=== PATIENT | female | born 1955 | race Caucasian/White ===

== ENCOUNTER → 2021-03-01 15:35 | Outpatient (BNVA) | payer SELFPAY | PROVIDERS: PCP Internal Medicine; Visit Provider Nurse Practitioner Family | DX: Z20.822 Contact with and (suspected) exposure to COVID-19 (principal); I10 Essential (primary) hypertension; B34.9 Viral infection, unspecified; F17.200 Nicotine dependence, unspecified, uncomplicated | CPT/HCPCS: 87635 ==

== ENCOUNTER 2023-09-15 15:31 | Emergency (ER) | payer MEDICARE, MEDICAID, SELFPAY ==
[2023-09-15 15:39] VITALS: BP 184/109; PULSE 59; RESP 17; TEMP 36.7; O2SAT 95; BMI 39.1
--- NOTE | 2023-09-15 16:03 | XRR_ITS ---
PROCEDURE INFORMATION: Exam: XR Right Knee Exam date and time: 09/15/2023 4:10 PM Age: 68 years old Clinical indication: Right; Patient HX: Non traumatic RT knee pain TECHNIQUE: Imaging protocol: Radiologic exam of the right knee. Views: 3 views. COMPARISON: No relevant prior studies available. FINDINGS: Bones/joints: Negative for fracture. Moderate DJD centered in the lateral compartment. Soft tissues: Normal. XR/XR knee RT 3V* [id number] IMPRESSION: No acute findings. Moderate DJD centered in the lateral compartment.
--- NOTE | 2023-09-15 16:04 | W.ED.EXTPRO ---
HPI - Extremity Problem General: Chief complaint: Extremity Injury, Lower Stated complaint: right knee pain Time Seen by Provider: 09/15/23 15:50 Source: patient and family Mode of arrival: ambulatory Limitations: no limitations History of Present Illness: This patient made her way to the emergency department today because she has had knee pain for at least 2 months. It is involving the right knee and there was no trauma involved. She states the pain is intermittent and seems to worsen with activity. She states that she has noted more pain recently. She says she had a lot of soreness in the back of her right knee. She again denies any recent trauma. No prior history of knee injury or knee surgeries. No prior history of thromboembolic events. She states that occasionally it feels weak and feels like it is going to give way. She is unsure if it locks at times. She has no pain in her left knee. She cannot comment on stair walking exacerbating symptoms that she has no stairs. Pain Consistency: intermittent Exacerbating factors: weight bearing and walking Associated symptoms: Deny chest pain, fever(s) or rash Review of Systems Const: Denies: fever(s) or chills ENMT: Denies: odynophagia, nasal congestion or nasal obstruction Card: Denies: chest pain, palpitations or irregular heart rhythm GI: Denies: abdominal pain, nausea or vomiting Musc: Reports: extremity pain; Denies: neck pain, back pain or extremity swelling Skin/Breast: Denies: rash or pruritus Neuro: Denies: headache(s), numbness in extremities or weakness in extremities Physical Exam Narrative: EXAM NARRATIVE: Patient is comfortable appears to be in no acute distress. She is goal-directed in her speech and answers all questions in a fluent voice Const: COMMON NORMALS: no acute distress, patient oriented x3 and alert NUTRITIONAL APPEARANCE: overweight HENMT: COMMON NORMALS: normocephalic HEAD & SCALP: normocephalic Eye: COMMON NORMALS: Equal, round and reactive pupils present PUPIL: Yes Equal, round and reactive pupils present Neck/C-Spine: COMMON NORMALS: full ROM Resp: COMMON NORMALS: normal respiratory effort and No use of accessory muscles EFFORT & INSPECTION: Yes able to speak in complete sentences Cardio: COMMON NORMALS: Peripheral pulses 2+ throughout PERIPHERAL PULSES: Peripheral pulses 2+ throughout : COMMON NORMALS: Yes no CVA tenderness BLADDER/KIDNEY EXAM: Yes no CVA tenderness Back/Pelvis: COMMON NORMALS: no CVA tenderness, thoracic and lumbar spine normal to inspection and no thoracic nor lumbar tenderness Extremity: COMMON NORMALS: normal to inspection and capillary refill normal NARRATIVE EXTREMITY EXAM: Examination with attention to the right lower extremity reveals normal appearing right lower extremity. There is no erythema joint effusions etc. She has normal range of motion at the hip ankle and foot. She is able to range her knee normally as well although it reproduces some discomfort for her to do so. There is no joint effusion or erythema of the skin overlying the right knee. There is some mild joint line tenderness medially. There is patella is in normal position and not ballotable. There is no laxity to varus or valgus stress. She has no anterior posterior drawer negative Gloria's. She does have some tenderness in the popliteal fossa. She has no proximal tenderness along the anterior medial thigh or in the inguinal region. There is no calf tenderness. Negative Homans. Neuro: COMMON NORMALS: patient oriented x3, moves all extremities, no focal motor deficits and no sensory deficits noted SENSORIUM/ORIENTATION: Yes alert Psych: COMMON NORMALS: mental status grossly normal Skin: COMMON NORMALS: no rashes or lesions noted and turgor normal GENERAL SKIN EXAM: no rashes or lesions noted and turgor normal Course Vital Signs: Vital signs: Vital Signs Temperature 98.1 F 09/15/23 15:39 Pulse Rate 57 L 09/15/23 16:26 Respiratory Rate 17 09/15/23 15:39 Blood Pressure 140/77 09/15/23 16:26 Pulse Oximetry 94 09/15/23 16:26 Oxygen Delivery Me thod Room Air 09/15/23 16:26 MDM - Extremity (Nontraumatic) Medical Decision Making Patient presented as noted in the HPI with nontraumatic right knee pain. He worse with activity and some achiness in the back part of her knee. No prior history of knee injuries. Clinical exam revealed no evidence that was suggest a septic joint or hot joint. She had no demonstrable instability. It was medial joint line tenderness as well as some posterior popliteal tenderness. She was neurovascular intact in that extremity. Differential included osteoarthritis, possible internal derangement but less likely, possible occult fracture unlikely, unlikely to be vascular in nature such as a DVT etc. She has low risk and has no clinical findings suggestive of the same. Imaging was obtained which revealed some mild joint line narrowing but no fracture or other acute injury. Portable bedside ultrasound was used to visualize the venous structures of the right lower extremity. At the trifurcation she was fully compressible without any evidence of intraluminal clot. Proximal femoral vessels were also compressible without any evidence of clot. She did have a fluid collection in the pop popliteal fossa to likely suggestive of a Bakers cyst. Plan will be to start her on a nonsteroidal regimen and have her have primary care follow-up. No evidence of other ongoing emergency medical condition at this time. XR interpretation done by ED provider, pending radiology final review ED provider radiology interpretation(s): No acute fracture, mild joint line narrowing. Discharge Plan Discharge Patient Disposition: Home Clinical Impression: Osteoarthritis of right knee Qualifiers: Osteoarthritis type: unspecified Qualified Code(s): M17.11 - Unilateral primary osteoarthritis, right knee Condition: Stable Prescriptions: New diclofenac sodium 25 mg tablet,delayed release (DR/EC) 25 mg PO BID Qty: 30 1RF No Action Unable to Assess Discharge Orders: Discharge ED (Routine); Ordered 09/15/23 Ordered By: Dell Miramontes Referrals: Shaylee Aguilar MD [Primary Care Provider] - Discharge Diet: Usual diet Discharge Activity: Increase activity as tolerated Patient Instructions: Opioid Safety, Pain Management, Osteoarthritis (ED) Activity Restrictions/Additional Instructions: As we discussed your findings and urine in the emerged part today regarding her knee suggested osteoarthritis or degenerative joint disease as a likely cause of your knee pain. We have provided a prescription for arthritis medicine that you may take. We recommend keeping as active as possible. If you develop any new symptoms such as redness of the joint fever inability to move the leg or joint extreme swelling or other concerns return to this or the nearest emergency department. Follow-up with your primary care doctor in the next 4 to 6 weeks to review your therapy and make recommendations changes as indicated. Coding Level of Care Code ED Oral Surgeon for Suzanne Brush
[2023-09-15 16:26] VITALS: BP 140/77; PULSE 57; O2SAT 94
[2023-09-15 17:12] VITALS: BP 181/76; PULSE 56; RESP 18; O2SAT 95
== END 2023-09-15 17:11 | disposition home or self-care (01) ==
PROVIDERS: Emergency Provider Emergency Medicine; PCP Internal Medicine
DX: M17.11 Unilateral primary osteoarthritis, right knee (principal)
CPT/HCPCS: 73562; 99283

== ENCOUNTER 2024-05-20 21:35 | Emergency (ER) | payer MEDICARE, MEDICAID, SELFPAY ==
[2024-05-20] VITALS (7 sets, daily range): BP systolic 162–210; BP diastolic 61–94; PULSE 55–63; RESP 16–18; TEMP 36.6; O2SAT 96–98; BMI 39.1
--- NOTE | 2024-05-20 21:47 | ECG_ITS ---
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 Measurements Intervals [place] Rate: 61 P: 37 [place]: 174 QRS: -52 QRSD: 93 T: 66 QT: 416 QTc: 421 Interpretive Statements SINUS RHYTHM PATTERN CONSISTENT WITH PULMONARY DISEASE LEFT ANTERIOR FASCICULAR BLOCK [QRS AXIS <= -45, QR IN I, RS IN II] No previous ECG available for comparison Electronically Signed On 05-21-2024 16:00:45 CDT by Maxime Suarez M.D. [email or web address] [id number]
--- NOTE | 2024-05-20 21:55 | XRR_ITS ---
PROCEDURE INFORMATION: Exam: XR Chest Exam date and time: 05/20/2024 10:01 PM Age: 69 years old Clinical indication: Other: HTN; Additional info: Hypertension palpitations TECHNIQUE: Imaging protocol: Radiologic exam of the chest. Views: 1 view. COMPARISON: No relevant prior studies available. FINDINGS: Lungs: Unremarkable. No consolidation. Pleural spaces: Unremarkable. No pleural effusion. No pneumothorax. Heart/Mediastinum: Unremarkable. No cardiomegaly. Bones/joints: Unremarkable. XR/XR chest 1V portable [id number] IMPRESSION: No acute findings.
--- NOTE | 2024-05-20 22:03 | ED_ITS ---
HPI - Dizziness 2 General: Chief Complaint: Dizziness Stated Complaint: dizzy, bp issues Time Seen by Provider: 05/20/24 21:52 History of Present Illness: HPI Narrative: Patient presents to the ER with her daughter at bedside with complaints of hypertension. Patient says she been watching her blood pressure for about 6 months and is on metoprolol 100 mg twice daily. Patient does not know how high her blood pressure normally runs but today he was 180 systolic. Patient is also reporting intermittent shortness of breath dizziness and headache. She did see a her heart was having palpitations patient denies chest pain at this time. Related Data Previous Rx's ?Medication ?Instructions ?Recorded diclofenac sodium 25 mg 25 mg PO BID arthritis #30 tabs 09/15/23 tablet,delayed release ciprofloxacin HCl 500 mg tablet 500 mg PO Q12H #20 tab s 05/21/24 Allergies Allergy/AdvReac Type Severity Reaction Status Date / Time sulfamethoxazole (From Allergy Severe ADR-Abdominal Verified 09/15/23 15:44 Bactrim) Pain trimethoprim (From Bactrim) Allergy Severe ADR-Abdominal Verified 09/15/23 15:44 Pain Review of Systems 2 General: Reports: 10 or more systems reviewed and unremarkable except in HPI and below Physical Exam 2 Const: COMMON NORMALS: no acute distress, average body habitus, patient oriented x3, no limitations, healthy appearing, alert and well nourished HENMT: COMMON NORMALS: normocephalic, atraumatic, hearing grossly normal bilaterally, external ears normal, Normal external nose present, moist oral mucous membranes and oropharynx normal HEAD & SCALP: normocephalic and atraumatic NOSE: Normal external nose present EXTERNAL EAR: Yes external ears normal Neck/C-Spine: COMMON NORMALS: full ROM, no lymphadenopathy, supple, no meningeal signs and no JVD Chest: COMMONS NORMALS: normal inspection of the chest and normal palpation of entire chest wall Resp: COMMON NORMALS: normal respiratory effort, No retractions, No use of accessory muscles and clear to auscultation bilaterally AUSCULTATION: clear to auscultation bilaterally Cardio: COMMON NORMALS: no JVD, regular rate, regular rhythm, S1 normal heart sound present, S2 normal heart sound present, No gallops present (Cardio), No clicks present (Cardio), No murmurs present (Cardio) and No rub (Cardio) R ATE: regular rate RHYTHM: regular rhythm HEART SOUNDS: S1 normal heart sound present and S2 normal heart sound present GI: COMMON NORMALS: Normal to inspection, nondistended, normoactive bowel sounds present, Soft to palpation, non-tender, No hepatosplenomegaly present and no masses PALPATION: Yes Soft to palpation and Yes No hepatosplenomegaly present Neuro: COMMON NORMALS: patient oriented x3 SENSORIUM/ORIENTATION: Yes alert MENINGEAL SIGNS: Yes no meningeal signs Course 2 Vital Signs: Vital signs: Vital Signs Temperature 97.8 F 05/20/24 21:40 Pulse Rate 56 L 05/21/24 01:00 Respiratory Rate 18 05/21/24 01:00 Blood Pressure 153/75 05/21/24 01:00 Pulse Oximetry 96 05/21/24 01:00 Oxygen Delivery Me thod Room Air 05/20/24 21:40 MDM - Dizziness Medical Decision Making Lab work was obtained which essentially unremarkable other than possible mild urinary tract infection. Patient was given a total of 0.3 mg clonidine to bring her blood pressure down to 153/75. Patient be given dose of Cipro here and a prescription to go home with. Medical Records I reviewed the patient's medical records. Lab Data I reviewed the patient's lab results. 05/20/24 22:03 05/20/24 22:03 Radiology Impressions Chest X-Ray 05/20/24 21:55 IMPRESSION: No acute findings. Laboratory Results WBC 9.81 10^3/uL (3.29-11.43) 05/20/24 22:03 RBC 5.33 10^6/uL (3.85-5.65) 05/20/24 22:03 Hgb 14.10 g/dL (11.27-16.99) 05/20/24 22:03 Hct 45.7 % (36-47) 05/20/24 22:03 MCV 85.7 fl (85-98) 05/20/24 22:03 MCH 26.5 pg (27-33) L 05/20/24 22:03 MCHC 30.9 g/dL (30-55) 05/20/24 22:03 RDW 13.2 % (12.1-15.1) 05/20/24 22:03 Plt Count 227 10^3/cmm (157-399) 05/20/24 22:03 MPV 10.4 fL (7.4-10.4) 05/20/24 22:03 Neut % (Auto) 57.4 % 05/20/24 22:03 Lymph % (Auto) 29.9 % 05/20/24 22:03 [place] % (Auto) 6.8 % 05/20/24 22:03 Eos % (Auto) 5.2 % 05/20/24 22:03 Baso % (Auto) 0.4 % 05/20/24 22:03 Neut # (Auto) 5.63 10^3/uL (1.8-7.7) 05/20/24 22:03 Lymph # (Auto) 2.9 10^3/uL (0.8-4.8) 05/20/24 22:03 [place] # (Auto) 0.7 10^3/uL (0.2-0.9) 05/20/24 22:03 Eos # (Auto) 0.5 10^3/uL (0.0-0.8) 05/20/24 22:03 Baso # (Auto) 0.0 10^3/uL (0.0-0.1) 05/20/24 22:03 Nucleated RBC % (auto) 0 % 05/20/24 22:03 Nucleated RBCs # 0.0 /100WBC 05/20/24 22:03 Sodium 139 mmol/L (136-145) 05/20/24 22:03 Potassium 4.2 mmol/L (3.5-5.1) 05/20/24 22:03 Chloride 103 mmol/L (98-107) 05/20/24 22:03 Carbon Dioxide 22 mmol/L (22-29) 05/20/24 22:03 Anion Gap 18.2 (5-19) 05/20/24 22:03 BUN 25 mg/dL (8-23) H 05/20/24 22:03 Creatinine 1.0 mg/dL (0.5-0.9) H 05/20/24 22:03 GFR Calculation 55.3 mL/min (90-130) L 05/20/24 22:03 Glucose 117 mg/dL (65-115) H 05/20/24 22:03 Calculated Osmolality 293 mOsm/kg (285-295) 05/20/24 22:03 Calcium 9.2 mg/dL (8.5-10.5) 05/20/24 22:03 Magnesium 2.1 mg/dL (1.7-2.3) 05/20/24 22:03 Total Bilirubin 0.2 mg/dL (0.15-1.2) 05/20/24 22:03 AST 22 U/L (0-32) 05/20/24 22:03 ALT 21 U/L (0-33) 05/20/24 22:03 Alkaline Phosphatase 88 U/L (35-105) 05/20/24 22:03 Troponin T Baseline 12 ng/L (0-10) H 05/20/24 22:03 Troponin T 120 Minute 12.96 ng/L (0-10) H 05/21/24 00:11 Delta Troponin T 0.96 ABS# (0-10) 05/21/24 00:11 Total Protein 6.8 g/dL (6.6-8.7) 05/20/24 22:03 Albumin 4.1 g/dL (3.5-5.2) 05/20/24 22:03 Globulin 2.7 g/dL (1.3-4.6) 05/20/24 22:03 TSH 2.64 uIU/mL (0.27-4.20) 05/20/24 22:03 Urine Color Yellow (Yellow) 05/20/24 22:45 Urine Appearance Slightly cloudy (CLEAR) 05/20/24 22:45 Urine pH 5 (5-7) 05/20/24 22:45 Ur Specific [place] 1.030 (1.005-1.030) 05/20/24 22:45 Urine Protein Trace (Negative) 05/20/24 22:45 Urine Glucose (UA) Norm (Normal) 05/20/24 22:45 Urine Ketones Negative (Negative) 05/20/24 22:45 Urine Blood Neg (Negative) 05/20/24 22:45 Urine Nitrate Negative (Negative) 05/20/24 22:45 Urine Bilirubin Neg (Negative) 05/20/24 22:45 Urine Urobilinogen Neg mg/dL (Negative) 05/20/24 22:45 Ur Leukocyte Esterase 1+ (Negative) H 05/20/24 22:45 Urine RBC None /hpf (0-2) 05/20/24 22:45 Urine WBC 5-10 /hpf (0-5) H 05/20/24 22:45 Ur Squamous Epith Cells 0-4 /hpf (0-5) H 05/20/24 22:45 Amorphous Sediment Not Reportable 05/20/24 22:45 Urine Bacteria None /hpf (NONE) 05/20/24 22:45 All radiology interpretation(s) finalized by discharge Discharge Plan Discharge Patient Disposition: Home Clinical Impression: Urinary tract infection Qualifiers: Urinary tract infection type: acute cystitis Hematuria presence: without hematuria Qualified Code(s): N30.00 - Acute cystitis without hematuria Hypertension Qualifiers: Hypertension type: unspecified Qualified Code(s): I10 - Essential (primary) hypertension Condition: Stable Prescriptions: New ciprofloxacin HCl 500 mg tablet 500 mg PO Q12H Qty: 20 0RF No Action diclofenac sodium 25 mg tablet,delayed release (DR/EC) 25 mg PO BID Qty: 30 1RF Discharge Orders: Discharge ED (Routine); Ordered 05/21/24 Ordered By: Lavon Schwab Referrals: Shaylee Aguilar MD [Primary Care Provider] - 1 week Patient Instructions: Urinary Tract Infection in Older Adults (ED), Hypertension Activity Restrictions/Additional Instructions: Please pickle cutter your antibiotics up at the pharmacy and take them as directed. Please check your blood pressure least twice a day and keep a blood pressure log and take it with you to your next family practice appointment. Please follow-up with your family practice doctor within next 7 days for further evaluation treatment. Print Language: Hungarian Coding Level of Care Code ED Change Director for Suzanne Brush
[2024-05-20 22:09] LABS: Basophils % 0.4 %; Eosinophils # 0.5 10^3/uL (0.0-0.8); Eosinophils % 5.2 %; Hematocrit 45.7 % (36-47); Lymphocytes # 2.9 10^3/uL (0.8-4.8); Lymphocytes % 29.9 %; Mean Corpuscular HGB Conc 30.9 g/dL (30-55); Mean Corpuscular Hemoglobin 26.5 pg (27-33); Mean Corpuscular Volume 85.7 fl (85-98); Mean Platelet Volume 10.4 fL (7.4-10.4); Monocytes # 0.7 10^3/uL (0.2-0.9); Monocytes % 6.8 %; Neutrophils # 5.63 10^3/uL (1.8-7.7); Neutrophils % 57.4 %; Nucleated Red Blood Cells % 0 %; Platelet Count 227 10^3/cmm (157-399); Red Blood Count 5.33 10^6/uL (3.85-5.65); Red Cell Distribution Width 13.2 % (12.1-15.1); White Blood Count 9.81 10^3/uL (3.29-11.43)
[2024-05-20 22:26] LABS: Troponin(5th) Baseline 12 ng/L (0-10)
[2024-05-20] MEDS: cloNIDine 0.1 mg Tablet PO (22:26)
[2024-05-20 22:35] LABS: Alanine Aminotransferase 21 U/L (0-33); Albumin Level 4.1 g/dL (3.5-5.2); Alkaline Phosphatase 88 U/L (35-105); Blood Urea Nitrogen 25 mg/dL (8-23); Calcium 9.2 mg/dL (8.5-10.5); Chloride 103 mmol/L (98-107); Creatinine Clr Calc Pharmacy 70.9431; Globulin 2.7 g/dL (1.3-4.6); Glomerular Filtration Rate 55.3 mL/min (90-130); Glucose 117 mg/dL (65-115); Magnesium 2.1 mg/dL (1.7-2.3); Osmolality Calculated 293 mOsm/kg (285-295); Sodium 139 mmol/L (136-145); Thyroid Stimulating Hormone 2.64 uIU/mL (0.27-4.20); Total Bilirubin 0.2 mg/dL (0.15-1.2); Total Protein 6.8 g/dL (6.6-8.7)
[2024-05-20 22:41] LABS: Carbon Dioxide 22 mmol/L (22-29)
[2024-05-20 22:56] LABS: Anion Gap 18.2 (5-19); Aspartate Amino Transferase 22 U/L (0-32); Potassium 4.2 mmol/L (3.5-5.1)
[2024-05-20 23:12] LABS: Add Urine Microscopic? YES; Bilirubin Urine Neg (Negative); Blood Urine Neg (Negative); Glucose Urine UA Norm (Normal); Ketones Urine Negative (Negative); Leukocyte Esterase Urine 1+ (Negative); Nitrate Urine Negative (Negative); Protein Urine Trace (Negative); Squamous Epithelial Cell Urine 0-4 /hpf (0-5); UA Manual Slide Review YES; Urine Appearance Slightly Cloudy (CLEAR); Urine Color Yellow (Yellow); Urobilinogen Urine Neg (Negative); pH Urine 5 (5-7)
[2024-05-20] MEDS: cloNIDine 0.1 mg Tablet 0.2 MG PO (23:32)
--- NOTE | 2024-05-20 23:55 | ECG_ITS ---
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 Measurements Intervals [place] Rate: 55 P: 34 [place]: 176 QRS: -40 QRSD: 94 T: 55 QT: 463 QTc: 446 Interpretive Statements SINUS BRADYCARDIA LEFT AXIS DEVIATION [QRS AXIS < -30] PATTERN CONSISTENT WITH PULMONARY DISEASE Compared to ECG 05/20/2024 21:47:36 Left-axis deviation now present Sinus rhythm no longer present Left anterior fascicular block no longer present Electronically Signed On 05-21-2024 21:33:58 CDT by Maxime Suarez M.D. [email or web address] [id number]
[2024-05-21] VITALS: BP 163/91; PULSE 57; RESP 16; O2SAT 95
[2024-05-21 00:30] VITALS: BP 172/79; PULSE 57; RESP 18; O2SAT 97
[2024-05-21 00:38] LABS: Troponin 5 2HR 12.96 ng/L (0-10); Troponin 5 2HR Delta 0.96 ABS# (0-10)
[2024-05-21 01:00] VITALS: BP 153/75; PULSE 56; RESP 18; O2SAT 96
[2024-05-21 01:18] VITALS: BP 153/75; PULSE 55; O2SAT 96
[2024-05-21] MEDS: ciprofloxacin 500 mg Tablet PO (01:18)
== END 2024-05-21 01:20 | disposition home or self-care (01) ==
PROVIDERS: Emergency Provider Emergency Medicine; PCP Internal Medicine
DX: N30.00 Acute cystitis without hematuria (principal); I10 Essential (primary) hypertension
CPT/HCPCS: 36415; 71045; 80053; 81001; 83735; 84443; 84484; 85025; 93005; 99285; J9999

== ENCOUNTER 2024-07-29 20:48 | Emergency (ER) | payer MEDICARE, MEDICAID, SELFPAY ==
[2024-07-29] VITALS (8 sets, daily range): BP systolic 152–193; BP diastolic 79–106; PULSE 54–67; RESP 16–18; TEMP 36.7; O2SAT 91–96
--- NOTE | 2024-07-29 21:04 | ECG_ITS ---
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 Measurements Intervals [place] Rate: 56 P: 1 [place]: 185 QRS: -31 QRSD: 104 T: 62 QT: 419 QTc: 406 Interpretive Statements SINUS BRADYCARDIA LEFT AXIS DEVIATION [QRS AXIS < -30] PATTERN CONSISTENT WITH PULMONARY DISEASE LEFT VENTRICULAR HYPERTROPHY AND ST-T CHANGE [VOLTAGE CRITERIA PLUS ST/T ABNORMALITY] Compared to ECG 05/21/2024 00:18:28 Left ventricular hypertrophy now present ST (T wave) deviation now present Electronically Signed On 07-31-2024 06:08:30 CDT by Maxime Suarez M.D. [id number] [id number]
--- NOTE | 2024-07-29 21:23 | W.ED.GENADLT ---
HPI - General Adult General: Chief complaint: General Medical Stated complaint: high bp, WALKER Time Seen by Provider: 07/29/24 21:20 History of Present Illness: 69-year-old female with a history of hypertension who presents emergency room with hypertension and a mild headache. Says he checked her blood pressure at home and it was over 180. She has been developing a bit of a headache. No altered mental status. No focal motor deficits. No chest pain. No shortness of breath. No abdominal pain. No nausea or vomiting. No fevers. No lower extremity swelling. She did take an extra lisinopril today. She supposed to follow-up with her doctor after having initiated lisinopril about a month ago for similar issues. Related Data Previous Rx's ?Medication ?Instructions ?Recorded diclofenac sodium 25 mg 25 mg PO BID arthritis #30 tabs 09/15/23 tablet,delayed release ciprofloxacin HCl 500 mg tablet 500 mg PO Q12H #20 tabs 05/21/24 clonidine HCl 0.1 mg tablet 0.1 mg PO Q8H PRN hypertensive 07/29/24 emergency #20 tabs Allergies Allergy/AdvReac Type Severity Reaction Status Date / Time sulfamethoxazole (From Allergy Severe ADR-Abdominal Verified 09/15/23 15:44 Bactrim) Pain trimethoprim (From Bactrim) Allergy Severe ADR-Abdominal Verified 09/15/23 15:44 Pain Review of Systems Narrative: Constitutional symptoms: Negative except as documented in HPI. Skin symptoms: Negative except as documented in HPI. Eye symptoms: Negative except as documented in HPI. ENMT symptoms: Negative except as documented in HPI. Respiratory symptoms: Negative except as documented in HPI. Cardiovascular symptoms: Negative except as documented in HPI. Gastrointestinal symptoms: Negative except as documented in HPI. Genitourinary symptoms: Negative except as documented in HPI. Musculoskeletal symptoms: Negative except as documented in HPI. Neurologic symptoms: Negative except as documented in HPI. Psychiatric symptoms: Negative except as documented in HPI. Endocrine symptoms: Negative except as documented in HPI. Physical Exam Narrative: EXAM NARRATIVE: General: Alert, no acute distress. Skin: Warm, dry. Head: Normocephalic, atraumatic. Neck: Supple, trachea midline. Eye: Extraocular movements are intact. Ears, nose, mouth and throat: mucosa moist. Cardiovascular: Regular, Normal peripheral perfusion. Respiratory: Lungs are clear to auscultation, respirations are non-labored, breath sounds are equal, Symmetrical chest wall expansion. Gastrointestinal: Soft, Nontender, Non distended Musculoskeletal: Normal ROM, no deformity. Neurological: Alert and oriented, No focal neurological deficit observed. Psychiatric: Cooperative, appropriate mood & affect. Course Vital Signs: Vital signs: Vital Signs Temperature 98.0 F 07/29/24 20:54 Pulse Rate 67 07/29/24 23:00 Respiratory Rate 16 07/29/24 23:00 Blood Pressure 183/98 07/29/24 23:00 Pulse Oximetry 91 07/29/24 23:00 Oxygen Delivery Me thod Room Air 07/29/24 20:54 MDM - General Adult Medical Decision Making Medical decision making: Differential diagnosis including but not limited to and based on the above HPI, review of systems and physical exam: Patient presents with hypertension: Essential hypertension. Stroke. acute coronary syndrome. kidney failure. congestive heart failure. anxiety. Orders placed to evaluate differential diagnosis based on the above differential, HPI and physical exam EKG: Time 2103. Rate 56. LVH. Sinus bradycardia, No ST-T changes, no ectopy, normal TN & QRS intervals, This was reviewed and interpreted by myself the ER physician at 2108 Lab Review: Laboratory results were reviewed and interpreted by myself the emergency room physician. No leukocytosis. No anemia. Stable mildly elevated renal function at 24 and 1 which was exactly what it was recently. Serial troponins are negative. Chest x-ray: No acute process. No infiltrate. No pneumothorax. This was reviewed and interpreted by myself the emergency room physician. I also reviewed the radiology report. I reviewed the patient's medical record. Reexamination: Patient remained stable. No increased work of breathing. No altered mental status. No focal motor deficits. Blood pressure has improved with clonidine. On discharge her blood pressure is 152/85. Assessment and plan: Accelerated hypertension ?Clonidine in the emergency room - Discharged home - Discussed findings and plan with patient. Answered any questions. - All laboratory values were reviewed and interpreted personally by myself, the ER physician - All imaging was reviewed and interpreted personally by myself, the ER physician. - Evaluation and treatment of this problem were appropriate in the emergency setting Lab Data 07/29/24 21:26 07/29/24 21:26 Radiology Impressions Chest X-Ray 07/29/24 21:26 IMPRESSION: No acute findings. Laboratory Results WBC 9.31 10^3/uL (3.29-11.43) 07/29/24 21: RBC 5.25 10^6/uL (3.85-5.65) 07/29/24 21: Hgb 13.80 g/dL (11.27-16.99) 07/29/24 21: Hct 43.8 % (36-47) 07/29/24 21: MCV 83.4 fl (85-98) L 07/29/24 21: MCH 26.3 pg (27-33) L 07/29/24 21: MCHC 31.5 g/dL (30-55) 07/29/24 21: RDW 13.3 % (12.1-15.1) 07/29/24 21: Plt Count 273 10^3/cmm (157-399) 07/29/24 21: MPV 10.4 fL (7.4-10.4) 07/29/24 21: Neut % (Auto) 57.9 % 07/29/24 21: Lymph % (Auto) 27.8 % 07/29/24 21: [place] % (Auto) 6.9 % 07/29/24 21: Eos % (Auto) 6.6 % 07/29/24: Baso % (Auto) 0.6 % 07/29/24: Neut # (Auto) 5.39 10^3/uL (1.8-7.7) 07/29/24 21: Lymph # (Auto) 2.6 10^3/uL (0.8-4.8) 07/29/24 21: [place] # (Auto) 0.6 10^3/uL (0.2-0.9) 07/29/24: Eos # (Auto) 0.6 10^3/uL (0.0-0.8) 07/29/24: Baso # (Auto) 0.1 10^3/uL (0.0-0.1) 07/29/24: Nucleated RBC % (auto) 0 % 07/29/24: Nucleated RBCs # 0.0 /100WBC 07/29/24 21:26 Sodium 138 mmol/L (136-145) 07/29/24 21:26 Potassium 4.1 mmol/L (3.5-5.1) 07/29/24 21:26 Chloride 102 mmol/L (98-107) 07/29/24 21: Carbon Dioxide 25 mmol/L (22-29) 07/29/24 21:26 Anion Gap 15.1 (5-19) 07/29/24 21:26 BUN 24 mg/dL (8-23) H 07/29/24 21:26 Creatinine 1.0 mg/dL (0.5-0.9) H 07/29/24 21:26 GFR Calculation 55.3 mL/min (90-130) L 07/29/24 21:26 Glucose 102 mg/dL (65-115) 07/29/24 21: Calculated Osmolality 290 mOsm/kg (285-295) 07/29/24 21:26 Calcium 9.7 mg/dL (8.5-10.5) 07/29/24 21: Total Bilirubin 0.3 mg/dL (0.15-1.2) 07/29/24 21:26 AST 18 U/L (0-32) 07/29/24 21:26 ALT 19 U/L (0-33) 07/29/24 21:26 Alkaline Phosphatase 103 U/L (35-105) 07/29/24 21:26 Troponin T Baseline 15 ng/L (0-10) H 07/29/24 21:26 Troponin T 120 Minute 13.58 ng/L (0-10) H 07/29/24 22:50 Delta Troponin T -1.42 ABS# (0-10) L 07/29/24 22:50 Total Protein 7.4 g/dL (6.6-8.7) 07/29/24 21:26 Albumin 3.9 g/dL (3.5-5.2) 07/29/24 21:26 Globulin 3.5 g/dL (1.3-4.6) 07/29/24 21:26 All radiology interpretation(s) finalized by discharge Discharge Plan Discharge Patient Disposition: Home Clinical Impression: Accelerated hypertension Condition: Stable Prescriptions: New clonidine HCl 0.1 mg tablet 0.1 mg PO Q8H PRN (Reason: hypertensive emergency) Qty: 20 0RF Rx Instructions: For Systolic >185 diastolic >100. Do not take more than once a day. If you are requiring this more often see provider No Action ciprofloxacin HCl 500 mg tablet 500 mg PO Q12H Qty: 20 0RF diclofenac sodium 25 mg tablet,delayed release (DR/EC) 25 mg PO BID Qty: 30 1RF Discharge Orders: Discharge ED (Routine); Ordered 07/29/24 Ordered By: Jenni Uribe Referrals: Shaylee Aguilar MD [Primary Care Provider, Internal Medicine] Discharge Diet: Usual diet Discharge Activity: Increase activity as tolerated Patient Instructions: Opioid Safety, Pain Management Activity Restrictions/Additional Instructions: Thank you for choosing [facility] for your healthcare needs today. You have been screened and evaluated and felt safe for discharge. Health conditions do change or evolve sometimes and as such it is important that you follow up with your Primary Doctor to be re checked, 3-5 days is a general good time frame for follow up. You are always welcome to return to the ED for re assessment if your symptoms are worsening or you have new concerns Print Language: Faroese Coding Level of Care Code ED Senior Quality Control Inspector for Suzanne Brush
--- NOTE | 2024-07-29 21:26 | XRR_ITS ---
PROCEDURE INFORMATION: Exam: XR Chest Exam date and time: 07/29/2024 9:27 PM Age: 69 years old Clinical indication: Other: HTN; Additional info: Hypertension TECHNIQUE: Imaging protocol: Radiologic exam of the chest. Views: 1 view. COMPARISON: CR XR chest 1V portable [id number] 05/20/2024 10:01 PM FINDINGS: Lungs: Unremarkable. No consolidation. Pleural spaces: Unremarkable. No pleural effusion. No pneumothorax. Heart/Mediastinum: Unremarkable. No cardiomegaly. Bones/joints: Minimal dextroscoliosis. Moderate thoracic spondylosis. XR/XR chest 1V portable [id number] IMPRESSION: No acute findings.
[2024-07-29 21:37] LABS: Basophils # 0.1 10^3/uL (0.0-0.1); Basophils % 0.6 %; Eosinophils # 0.6 10^3/uL (0.0-0.8); Eosinophils % 6.6 %; Hematocrit 43.8 % (36-47); Lymphocytes # 2.6 10^3/uL (0.8-4.8); Lymphocytes % 27.8 %; Mean Corpuscular HGB Conc 31.5 g/dL (30-55); Mean Corpuscular Hemoglobin 26.3 pg (27-33); Mean Corpuscular Volume 83.4 fl (85-98); Mean Platelet Volume 10.4 fL (7.4-10.4); Monocytes # 0.6 10^3/uL (0.2-0.9); Monocytes % 6.9 %; Neutrophils # 5.39 10^3/uL (1.8-7.7); Neutrophils % 57.9 %; Nucleated Red Blood Cells % 0 %; Platelet Count 273 10^3/cmm (157-399); Red Blood Count 5.25 10^6/uL (3.85-5.65); Red Cell Distribution Width 13.3 % (12.1-15.1); White Blood Count 9.31 10^3/uL (3.29-11.43)
[2024-07-29 21:55] LABS: Troponin(5th) Baseline 15 ng/L (0-10)
[2024-07-29 21:58] LABS: Alanine Aminotransferase 19 U/L (0-33); Albumin Level 3.9 g/dL (3.5-5.2); Alkaline Phosphatase 103 U/L (35-105); Anion Gap 15.1 (5-19); Aspartate Amino Transferase 18 U/L (0-32); Blood Urea Nitrogen 24 mg/dL (8-23); Calcium 9.7 mg/dL (8.5-10.5); Carbon Dioxide 25 mmol/L (22-29); Chloride 102 mmol/L (98-107); Creatinine Clr Calc Pharmacy 70.1613; Globulin 3.5 g/dL (1.3-4.6); Glomerular Filtration Rate 55.3 mL/min (90-130); Glucose 102 mg/dL (65-115); Osmolality Calculated 290 mOsm/kg (285-295); Potassium 4.1 mmol/L (3.5-5.1); Sodium 138 mmol/L (136-145); Total Bilirubin 0.3 mg/dL (0.15-1.2); Total Protein 7.4 g/dL (6.6-8.7)
[2024-07-29] MEDS: cloNIDine 0.1 mg Tablet PO (22:54)
[2024-07-29 23:12] LABS: Troponin 5 2HR 13.58 ng/L (0-10)
--- NOTE | 2024-07-29 23:20 | ECG_ITS ---
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 Measurements Intervals [place] Rate: 56 P: 3 LA: 186 QRS: -31 QRSD: 100 T: 57 QT: 434 QTc: 422 Interpretive Statements SINUS BRADYCARDIA LEFT AXIS DEVIATION [QRS AXIS < -30] PATTERN CONSISTENT WITH PULMONARY DISEASE MODERATE VOLTAGE CRITERIA FOR LVH, CONSIDER NORMAL VARIANT [MEETS CRITERIA IN ONE OF: R(aVL), S(V1), R(V5), R(V5/V6)+S(V1)] Compared to ECG 07/29/2024 21:04:50 ST (T wave) deviation no longer present Electronically Signed On 07-31-2024 06:26:05 CDT by Maxime Suarez M.D. [email or web address]
[2024-07-29 23:22] LABS: Troponin 5 2HR Delta -1.42 ABS# (0-10)
== END 2024-07-29 23:46 | disposition home or self-care (01) ==
PROVIDERS: Emergency Medicine; Emergency Provider Emergency Medicine; PCP Internal Medicine
DX: I10 Essential (primary) hypertension (principal)
CPT/HCPCS: 71045; 80053; 84484; 85025; 93005; 99285; J9999

== ENCOUNTER 2024-09-01 19:46 | Emergency (ER) | payer MEDICARE, MEDICAID, SELFPAY ==
--- NOTE | 2024-09-01 20:04 | CTR_ITS ---
PROCEDURE INFORMATION: Exam: CT Cervical Spine Without Contrast Exam date and time: 09/01/2024 8:42 PM Age: 69 years old Clinical indication: Injury or trauma; Fall; Blunt trauma TECHNIQUE: Imaging protocol: Computed tomography of the cervical spine without contrast. Radiation optimization: All CT scans at this facility use at least one of these dose optimization techniques: automated exposure control; mA and/or kV adjustment per patient size (includes targeted exams where dose is matched to clinical indication); or iterative reconstruction. COMPARISON: CR (CHEST, ) 07/29/2024 9:27 PM RADIATION DOSE METRICS: Total DLP (mGy-cm): 294.5 FINDINGS: Bones: Mild dextroscoliosis. Mild multilevel spine degenerative changes including degenerative disc disease, spondylosis and facet degenerative changes. Teeth: The patient is edentulous. Lungs: Lung apices are normal. Soft tissues: Unremarkable. CT/CT cervical spin wo con* [id number] IMPRESSION: No acute cervical spine fracture.
--- NOTE | 2024-09-01 20:05 | CTR_ITS ---
PROCEDURE INFORMATION: Exam: CT Head Without Contrast Exam date and time: 09/01/2024 8:42 PM Age: 69 years old Clinical indication: Injury or trauma; Fall; Blunt trauma (contusions or hematomas); Without loss of consciousness TECHNIQUE: Imaging protocol: Computed tomography of the head without contrast. Radiation optimization: All CT scans at this facility use at least one of these dose optimization techniques: automated exposure control; mA and/or kV adjustment per patient size (includes targeted exams where dose is matched to clinical indication); or iterative reconstruction. COMPARISON: CT facial bones wo con* [id number] 09/01/2024 8:42 PM RADIATION DOSE METRICS: Total DLP (mGy-cm): 1262.9 FINDINGS: Brain: Mild cerebral atrophy. Cerebral ventricles: No ventriculomegaly. Pituitary gland and sella: The sella is largely filled with CSF and the pituitary gland is flattened against the inferior wall of the sella consistent with empty sella syndrome. This nonacute finding is usually asymptomatic, although it can be associated with idiopathic intracranial hypertension. Paranasal sinuses: Visualized sinuses are unremarkable. No fluid levels. Mastoid air cells: Visualized mastoid air cells are well aerated. Bones: Unremarkable. No acute fracture. Soft tissues: Unremarkable. CT/CT head wo con* [id number] IMPRESSION: 1. The sella is largely filled with CSF and the pituitary gland is flattened against the inferior wall of the sella consistent with empty sella syndrome. This nonacute finding is usually asymptomatic, although it can be associated with idiopathic intracranial hypertension. 2. Mild cerebral atrophy. 3. No acute posttraumatic findings.
[2024-09-01 20:10] VITALS: BP 139/88; PULSE 58; RESP 16; TEMP 36.7; O2SAT 95
--- NOTE | 2024-09-01 20:41 | CTR_ITS ---
PROCEDURE INFORMATION: Exam: CT Maxillofacial Without Contrast; Mandible Exam date and time: 09/01/2024 8:42 PM Age: 69 years old Clinical indication: Injury or trauma; Fall; Blunt trauma (contusions or hematomas); Jaw; Right; Additional info: Fall, hit head TECHNIQUE: Imaging protocol: Computed tomography maxillofacial without contrast. Exam focused on the mandible. Radiation optimization: All CT scans at this facility use at least one of these dose optimization techniques: automated exposure control; mA and/or kV adjustment per patient size (includes targeted exams where dose is matched to clinical indication); or iterative reconstruction. COMPARISON: CT head wo con* [id number] 09/01/2024 8:42 PM RADIATION DOSE METRICS: Total DLP (mGy-cm): 571.5 FINDINGS: Bones: Mandible is unremarkable. No acute fracture. Soft tissues: Unremarkable. Teeth: The patient is edentulous. CT/CT facial bones wo con* [id number] IMPRESSION: 1. Unremarkable mandible. 2. No acute posttraumatic findings.
--- NOTE | 2024-09-01 22:15 | W.ED.FALL ---
HPI - Fall General: Chief Complaint: Fall Stated Complaint: fall, hit head Time Seen by Provider: 09/01/24 22:05 Source: patient Limitations: no limitations History of Present Illness: 69-year-old female states she was chasing grease around the yard tripped fell and hit her head states she has had a mild headache and some neck pain since the fall. Denies any loss of conscious rates her headache a 4 out of 10 she has not any blood thinners denies any other injuries from the fall. Associated symptoms-after fall: Reports headache(s) and neck pain; Denies abdominal pain or chest pain Related Data Previous Rx's ?Medication ?Instructions ?Recorded diclofenac sodium 25 mg 25 mg PO BID arthritis #30 tabs 09/15/23 tablet,delayed release ciprofloxacin HCl 500 mg tablet 500 mg PO Q12H #20 tabs 05/21/24 clonidine HCl 0.1 mg tablet 0.1 mg PO Q8H PRN hypertensive 07/29/24 emergency #20 tabs Allergies Allergy/AdvReac Type Severity Reaction Status Date / Time sulfamethoxazole (From Allergy Severe ADR-Abdominal Verified 09/01/24 20:14 Bactrim) Pain trimethoprim (From Bactrim) Allergy Severe ADR-Abdominal Verified 09/01/24 20:14 Pain Review of Systems Const: Denies: fever(s), chills, body aches or change in appetite ENMT: Denies: throat pain or dental pain Card: Denies: chest pain Resp: Denies: dyspnea GI: Denies: abdominal pain, nausea, vomiting or diarrhea Musc: Reports: neck pain; Denies: back pain Skin/Breast: Denies: rash Neuro: Reports: headache(s) Physical Exam Const: COMMON NORMALS: no acute distress, patient oriented x3 and healthy appearing HENMT: COMMON NORMALS: normocephalic HEAD & SCALP: normocephalic OTHER: Contusion of right forehead Eye: COMMON NORMALS: Equal, round and reactive pupils present and EOMs intact bilaterally PUPIL: Yes Equal, round and reactive pupils present Neck/C-Spine: COMMON NORMALS: full ROM and supple OTHER: Slight tenderness along spine Chest: COMMONS NORMALS: normal inspection of the chest and normal palpation of entire chest wall Resp: COMMON NORMALS: normal respiratory effort, No retractions, No use of accessory muscles and clear to auscultation bilaterally AUSCULTATION: clear to auscultation bilaterally Cardio: COMMON NORMALS: regular rate RATE: regular rate Extremity: COMMON NORMALS: normal to inspection and full ROM Neuro: COMMON NORMALS: patient oriented x3, moves all extremities and no focal motor deficits Psych: COMMON NORMALS: mental status grossly normal, Normal thought process present and cooperative THOUGHT PROCESS: Normal thought process present Skin: COMMON NORMALS: no rashes or lesions noted and no wounds GENERAL SKIN EXAM: no rashes or lesions noted Course Vital Signs: Vital signs: Vital Signs Temperature 98.0 F 09/01/24 20:10 Pulse Rate 58 L 09/01/24 20:10 Respiratory Rate 16 09/01/24 20:10 Blood Pressure 139/88 09/01/24 20:10 Pulse Oximetry 95 09/01/24 20:10 Oxygen Delivery Me thod Room Air 09/01/24 20:10 MDM - Fall Medical Decision Making Patient presents here with closed head injury from a fall imaging here is negative patient is well-appearing here. She is ambulatory headaches improving she stable for discharge follow-up with PCP return if worsening. Medical Records I reviewed the patient's medical records. Lab Data Radiology Impressions Cervical Spine CT 09/01/24 20:04 IMPRESSION: No acute cervical spine fracture. Head CT 09/01/24 20:05 IMPRESSION: 1. The sella is largely filled with CSF and the pituitary gland is flattened against the inferior wall of the sella consistent with empty sella syndrome. This nonacute finding is usually asymptomatic, although it can be associated with idiopathic intracranial hypertension. 2. Mild cerebral atrophy. 3. No acute posttraumatic findings. Face CT 09/01/24 20:41 IMPRESSION: 1. Unremarkable mandible. 2. No acute posttraumatic findings. All radiology interpretation(s) finalized by discharge Discharge Plan Discharge Patient Disposition: Home Clinical Impression: Closed head injury, Fall Condition: Stable Prescriptions: No Action ciprofloxacin HCl 500 mg tablet 500 mg PO Q12H Qty: 20 0RF clonidine HCl 0.1 mg tablet 0.1 mg PO Q8H PRN (Reason: hypertensive emergency) Qty: 20 0RF Rx Instructions: For Systolic >185 diastolic >100. Do not take more than once a day. If you are requiring this more often see provider diclofenac sodium 25 mg tablet,delayed release (DR/EC) 25 mg PO BID Qty: 30 1RF Discharge Orders: Discharge ED (Routine); Ordered 09/01/24 Ordered By: Yolette Patel Referrals: Shaylee Aguilar MD [Primary Care Provider, Internal Medicine] - 4-7 days Discharge Diet: Advance as tolerated Discharge Activity: Resume usual activity Patient Instructions: Head Injury (ED) Print Language: Lao Coding Level of Care Code ED Environmental Services Technician for Suzanne Brush
== END 2024-09-01 22:34 | disposition home or self-care (01) ==
PROVIDERS: Emergency Provider Emergency Medicine; PCP Internal Medicine
DX: S09.8XXA Other specified injuries of head, initial encounter (principal); W01.0XXA Fall on same level from slipping, tripping and stumbling without subsequent striking against object, initial encounter
CPT/HCPCS: 70450; 70486; 72125; 99284

== ENCOUNTER 2024-09-25 10:34 | Outpatient (CLI) | payer MEDICARE, MEDICAID, SELFPAY ==
--- NOTE | 2024-09-25 10:41 | FL_ITS ---
WS: [id number] Modified barium swallow, 09/25/2024 Clinical Data: Other dysphagia, difficulty swallowing with chronic cough. Comparison: None. Fluoroscopy time: 2min [id number] # of spot films: 0 Findings: The patient had premature spillage with food and liquids. There is minimal penetration with thin liquids but no aspiration. Minimal residue occurred but cleared rapidly. The patient propelled the barium tablet from the oral cavity into the hypopharynx and then the esophagus. The tablet stuck slightly in the esophagus until the patient ingested more liquid to push the barium tablet into the stomach. FL/FL barium swallow modifd [id number] Impression: 1. Premature oral spillage with food and liquids. 2. Minimal penetration with thin liquids but no aspiration. 3. Barium tablet moved normally into the midesophagus with slight assistance fr om liquid material to progress into the stomach.
== END 2024-09-25 10:35 | disposition home or self-care (01) ==
LOC: RAD 10:35
PROVIDERS: PCP Internal Medicine; Visit Provider Nurse Practitioner Family
DX: R13.19 Other dysphagia (principal)
CPT/HCPCS: 74230; 92611